=== PATIENT | female | born 1945 | race Caucasian/White ===

== ENCOUNTER → 2022-05-31 11:25 | Outpatient (CLI) | payer MEDICARE, SELFPAY ==
[2022-05-31 12:02] LABS: Add Manual Diff / Slide Review NO; Basophils Absolute Auto 100 /uL (0-100); Eosinophils Absolute Auto 100 /uL (0-450); Eosinophils Percent Auto 0.8 % (2-4); Hematocrit 34.8 % (36-46); Hemoglobin 11.3 g/dL (12.0-16.0); Lymphocytes Absolute Auto 1300 /uL (1100-4500); Lymphocytes Percent Auto 19.3 % (25-40); Mean Corpuscular HGB Conc 32.5 % (30-36); Mean Corpuscular Hemoglobin 30.2 PG (26-34); Mean Corpuscular Volume 92.8 fL (80-100); Monocytes Absolute Auto 900 /uL (0-900); Monocytes Percent Auto 13.2 % (3-14); Neutrophils Absolute Auto 4600 /uL (1500-7000); Neutrophils Percent Auto 65.7 % (50-75); Platelet Count 346 X10^3/uL (150-400); Red Blood Cell Count 3.75 X10^6/uL (4.0-5.2); Red Cell Distribution Width 14.1 % (11.6-14.8)
[2022-05-31 12:45] LABS: BUN Creatinine Ratio 23.2 (6-22); Blood Urea Nitrogen 13 mg/dL (7-17); Calcium 8.6 mg/dL (8.4-10.2); Carbon Dioxide 26 mmol/L (22-32); Chloride 100 mmol/L (98-107); Estimated Glomerular Filt Rate > 60 mL/min (>60); Glucose 97 mg/dL (80-110); HEMOLYSIS < 15 (0-50); Potassium 3.8 mmol/L (3.4-5.1); Sodium 137 mmol/L (137-145)
[2022-05-31 12:51] LABS: Bilirubin Urine UA NEGATIVE (NEGATIVE); Color Urine UA YELLOW; Glucose Urine UA NEGATIVE (Negative); Ketones Urine UA NEGATIVE (NEGATIVE); Leukocyte Esterase Urine UA 1+ (NEGATIVE); Nitrite Urine UA NEGATIVE (Negative); Occult Blood Urine UA NEGATIVE (Negative); Protein Urine UA NEGATIVE (Negative); Specific Gravity Urine UA <=1.005 (1.000-1.035); Urobilinogen Urine UA 0.2 E.U./dL (0.2)
[2022-05-31 13:00] LABS: Appearance Urine UA Slightly Cloudy
[2022-05-31 13:05] LABS: Amorphous Sediment Urine 1+; Bacteria Urine Occasional (0-1); Culture Indicated Urine Specimen Cultured; RBC Urine None Seen (0-5/HPF); Renal Epithelial Cells Urine 0-1/HPF (0-1/HPF); Squamous Epithelial Cell Urine 1-5 /HPF (0-5/HPF); WBC Urine 5-10/HPF (0-5/HPF)
== END ==
PROVIDERS: Referring Provider Orthopaedic Surgery; Visit Provider Orthopaedic Surgery
DX: Z01.818 Encounter for other preprocedural examination (principal); N39.0 Urinary tract infection, site not specified; Z01.812 Encounter for preprocedural laboratory examination
CPT/HCPCS: 36415; 80048; 81001; 85025; 87086; 93005; 93010

== ENCOUNTER → 2022-06-13 11:20 | Outpatient (CLI) | payer MEDICARE, SELFPAY ==
--- NOTE | 2022-06-13 | DI.CT.S_ITS ---
PROCEDURE: CT UE RT WO CON INDICATIONS: Primary osteoarthritis, right shoulder TECHNIQUE: Noncontrast 1-1.5 mm thick sections acquired from the acromioclavicular joint to the inferior scapula, with coronal and sagittal reformatting. COMPARISON: [facility] Outside Film, CT, CT UPPER EXTREMITY RIGHT WITHOUT CONTRAST, 05/09/2022, 14:39. FINDINGS: Image quality: Excellent. Bones: Moderate acromioclavicular joint osteoarthritic changes are seen with joint space narrowing, subchondral sclerosis and marginal osteophyte formation. Subacute appearing comminuted and impacted fracture involving proximal humeral shaft/surgical neck is seen with superior and anterior medial migration of proximal humeral shaft in relation to humeral head. There is up to 2.5 cm overlapping at fracture site. Fracture lines are seen extending to both greater and lesser tuberosities with medial and laterally displaced fractured fragments. No other fracture or dislocation is seen. No suspicious bony lesions. Visualized right upper to mid ribs are intact. Soft tissues: There is moderate joint effusion, no calcified intra-articular loose bodies. No gross full-thickness rotator cuff tendon rupture is noted. Sagittal images shows mild supraspinatus muscle atrophy. No abnormal soft tissue calcifications. IMPRESSION: 1. Subacute appearing comminuted and displaced proximal humeral fracture as described above consistent with a 3-4 part proximal humeral fracture. No other fracture or dislocation. No suspicious bony lesions. 2. Moderate acromioclavicular joint and glenohumeral joint osteoarthritis. No dislocation. 3. Moderate joint effusion, no gross loose bodies. No full-thickness rotator cuff tendon rupture. No abnormal soft tissue calcifications. Mild supraspinatus muscle atrophy. Dictated by: Rick Nascimento M.D. on 06/13/2022 at 16:38 Approved by: Rick Nascimento M.D. on 06/13/2022 at 16:42
== END ==
PROVIDERS: Referring Provider Orthopaedic Surgery; Visit Provider Orthopaedic Surgery
DX: M19.011 Primary osteoarthritis, right shoulder (principal); S42.201A Unspecified fracture of upper end of right humerus, initial encounter for closed fracture; M25.411 Effusion, right shoulder; M62.511 Muscle wasting and atrophy, not elsewhere classified, right shoulder
CPT/HCPCS: 73200

== ENCOUNTER 2022-06-20 11:11 | Inpatient (IN) | payer MEDICARE, SELFPAY ==
[2022-06-13 08:46] VITALS: BMI 23.1
[2022-06-20] VITALS (14 sets, daily range): BP systolic 126–179; BP diastolic 54–84; PULSE 93–133; RESP 12–22; TEMP 36.4–36.9; O2SAT 95–100; BMI 22.2
--- NOTE | 2022-06-20 | DI.RAD.S_ITS ---
PROCEDURE: XR SHOULDER RT 1V INDICATIONS: INTRA -OP RIGHT SHOULDER TECHNIQUE: 1 views of the shoulder were acquired. COMPARISON: [facility], , XR SHOULDER RT 1V, 06/20/2022, 18:49. Findings and impression: Intraoperative images were obtained for right shoulder arthroplasty, appearing in appropriate position. Please see operative note for full details. Dictated by: Catracho Del Toro M.D. on 06/20/2022 at 19:40 Approved by: Catracho Del Toro M.D. on 06/20/2022 at 19:41
--- NOTE | 2022-06-20 06:00 | DI.RAD.S_ITS ---
PROCEDURE: XR SHOULDER RT 1V INDICATIONS: prosthesis placement TECHNIQUE: 1 views of the shoulder were acquired. COMPARISON: [facility] [place], CR, XR SHOULDER 2+ VIEWS RIGHT, 06/07/2022, 10:32. FINDINGS: Bones: Right shoulder arthroplasty and fracture fixation. Soft tissues: No suspicious calcifications. Postsurgical changes. IMPRESSION: Postsurgical changes following right shoulder arthroplasty and fracture fixation. Dictated by: Catracho Del Toro M.D. on 06/20/2022 at 19:07 Approved by: Catracho Del Toro M.D. on 06/20/2022 at 19:08
[2022-06-20 11:56] LABS: COVID19 -Nasal RAPID Negative (Negative)
[2022-06-20] MEDS: ACETAMINOPHEN 325 MG TABLET 975 MG PO (11:57)
[2022-06-20] MEDS: PREGABALIN 75 MG CAPSULE PO (11:58)
[2022-06-20] MEDS: LACTATED RINGERS 1,000 ML 42 ML IV ×3 (11:58→19:08)
[2022-06-20] MEDS: CELECOXIB 200 MG CAPSULE PO (11:58)
--- NOTE | 2022-06-20 13:10 | SUR.PREOP ---
Block start time [1255] . Monitoring initiated and maintained throughout procedure. Oxygen and medications given per anesthesiologist instructions. Patient remained stable throughout procedure, no adverse reactions noted. Block end time [0105].
--- NOTE | 2022-06-20 13:21 | PM.PREOP ---
Pre-operative Note Interval Note History & Physical reviewed/Exam performed by Physician: Yes Changes to H&P: No
[2022-06-20] MEDS: CEFAZOLIN 2 GM/100 ML PREMIX 100 ML IV ×3 (14:00→21:03)
[2022-06-20] MEDS: TRANEXAMIC ACID 1,000 MG VIAL 1000 MG INJ (14:05)
--- NOTE | 2022-06-20 14:46 | SUR.OPER ---
Beach chair with Schlein shoulder positioner. Lower body on padded OR bed. Gel pad under buttock. Head in foam padded head cradle, secured with straps. Non-operative arm secured <90 degrees abduction, secured across torso with Schlein straps. Right arm in control of surgeon. Two Pillows under knees. Gel pad under bilateral heels. Safety belt at thigh. Cloth tape over blanket over lower legs.
[2022-06-20] MEDS: BUPIVACAINE 0.25% (PF) 60 ML, EPINEPHrine 0.3 MG INJ (16:58)
--- NOTE | 2022-06-20 18:39 | PM.OP.1 ---
Operative Date/Time/Diagnoses Date of procedure: 06/20/22 Time of procedure: 18:39 Pre-op diagnosis: Right proximal humerus fracture, 4 parts with spiral fracture component Post-op diagnosis: same Procedure & Clinicians Procedure: Right shoulder hemiarthroplasty Same procedure as scheduled: Yes Indications: Indications: This is a 77 year old female who has a 4 part proximal humerus fracture. This occurred now over 6 weeks ago. I saw her with her son in clinic. After extensive discussion in clinic, they wished to go forward with surgery. Risks and benefits were described including the risk of infection, bleeding, damage to internal structures including nerves. We also discussed the risk of failure of surgery and the need for revision surgery as well as the risk of anesthesia. The patient expressed understanding with these risks and wished to go forward with surgery. Surgeon: Juan Pinto Mill Washer: Lea Acosta Anesthesia Type: General Operative Notes Findings: Findings: Osteoarthritis of the glenoid and humeral head [as well as a defient rotator cuff] as noted on preoperative imaging and under direct visualization Prosthetic devices, grafts, tissues, transplants, or devices: Tornier implants Stem: Flex size 2 Humeral head: 50 x 16, high offset Estimated Blood Loss (mL): 100 Procedure in detail: Patient was seen in the preoperative holding unit. The correct right shoulder was identified and marked with my initials. Again we discussed the risks and benefits of surgery and they wished to go forward with surgery. The patient was brought back to the operating room and placed supine on the operating table. Smooth endotracheal intubation was performed by anesthesia. All prominences were padded and they were placed into the beach chair position. Intravenous antibiotics were given. The right shoulder was then prepped with the standard sterile preparation and draping. A time-out was then performed in my initials were again identified on the correct shoulder. 1 g of IV tranexamic acid was given. A standard deltopectoral incision was made. Skin flaps were made. The cephalic vein was identified and retracted laterally. Sharp dissection was made along the deltoid, subacromial and subcoracoid space to release adhesions. The conjoined tendon was identified and the axillary nerve was palpated and continuous using the tug test. It was protected throughout the remainder of the case. A brown retractor was placed underneath the deltoid muscle and a darach retractor underneath the conjoint tendon. The biceps tendon was identified in the bicipital groove. This was released from its sheath, and taken from its origin on the glenoid and tied into the pectoralis tendon for a solid tenodesis. I then performed a lesser tuberosity osteotomy. The subscapularis was tagged with an Ethibond suture. A 360 degree circumferential release of the subscapularis was performed with protection of the axillary nerve. The greater tuberosity was then found and tagged. The remainder of the humeral head was then removed. Attention was then turned to the glenoid. After retracting the humeral head posteriorly a circumferential release was performed of the capsule with protection of the axillary nerve. The labrum was then released starting at the biceps anchor and going around the rim a small amount of triceps was released from the inferior glenoid. A center guide pin was then placed using the guide, followed by Reamer. After adequate cartilage was removed the center drill hole was drilled and measured. The base plate was then implanted and screwed into place. The superior drill hole was drilled and filled in a nonlocking fashion, followed by the inferior. There was not enough room for anterior or posterior screws due to the size of the glenoid. As the glenosphere was then placed and screwed in clockwise into the base plate, the entire unit rotated clockwise breaking out of the anterior cortex resulting in only the posterior half of the glenoid being in continuity. The anterior half that was ruptured off was in small cancellous pieces and not salvageable. Turning back to the humerus there was notably a spiral component. Two separate cerclage wires were placed and tensioned. Drill holes were placed in the shaft for repairing the tuberosities, and Nice loops were passed A size 2 long flex stem was then placed and a size 50 high offset humeral head was placed. The shoulder was then reduced and the tuberosities were repaired using #5 Sutures and nice loupes. Note, the lesser tuberosity was fairly difficult to pull all the way over due to the subscapularis being retracted and scarred in from being 6 weeks out from the injury. The deltopectoral interval was then closed with Ethibond and the skin was closed with PDS and Monocryl. Assisting participation: This operation could not have been safely performed (without compromising the technical results or length of the procedure) without the assistance of a skilled surgical instrument technician. The surgical instrument technician was medically necessary for proper positioning, retraction and manipulation of instruments, proper exposure, graft prep, and manipulation of tissue. Complications: none Post-operative Condition: stable Disposition: PACU Plan for aftercare: Postoperative instructions: Sling to remain on for 6 weeks. Please work on elbow range of motion. No external rotation past neutral for 6 weeks. Okay for him to come off her shower. Okay to shower over the Aquacel dressing. If any water gets underneath the dressing, remove the dressing. First postoperative visit in 2 weeks.
--- NOTE | 2022-06-20 18:57 | SUR.PHASEI ---
Patient arrives to PACU with HR of 133 Sinus tachycardia; asymptomatic. Anesthesia aware and metoprolol IV administered. HR down to 106 after medication given.
[2022-06-20] MEDS: ONDANSETRON 4 MG/2 ML INJ IV (19:01)
[2022-06-20] MEDS: OXYCODONE IR 5 MG TABLET PO (19:01)
[2022-06-20 19:03] LABS: Hematocrit 28.6 % (36-46); Hemoglobin 9.4 g/dL (12.0-16.0)
--- NOTE | 2022-06-20 19:06 | SUR.PHASEI ---
Bladder scan 200 mls.
[2022-06-20] MEDS: DOCUSATE 100 MG CAPSULE PO (21:03)
[2022-06-20] MEDS: ASPIRIN EC 81 MG TABLET PO (21:03)
[2022-06-20 21:31] LABS: MRSA (Nasal) PCR Not Detected (Not Detect)
--- NOTE | 2022-06-20 23:28 | PC.NURSE ---
Patient arrived to unit post op from shoulder surgery at 1930. Patient alert and oriented, slightly tachycardic, HR 108. Patient was in no pain, slightly anxious regarding surgery, which has now subsided. Patient currently NSR and sleeping comfortably in bed.
[2022-06-21] VITALS: BP 129/67; PULSE 88; RESP 12; TEMP 36.4; O2SAT 96
[2022-06-21] MEDS: HYDROMORPHONE 1 MG INJ 0.5 MG IV (03:10)
[2022-06-21 04:00] VITALS: BP 109/62; PULSE 95; RESP 20; TEMP 36.4; O2SAT 96
[2022-06-21] MEDS: CEFAZOLIN 2 GM/100 ML PREMIX 100 ML IV (04:50)
[2022-06-21 04:59] LABS: Hematocrit 27.4 % (36-46); Hemoglobin 9.1 g/dL (12.0-16.0); Mean Corpuscular HGB Conc 33.1 % (30-36); Mean Corpuscular Hemoglobin 29.7 PG (26-34); Mean Corpuscular Volume 89.9 fL (80-100); Platelet Count 221 X10^3/uL (150-400); Red Blood Cell Count 3.05 X10^6/uL (4.0-5.2); Red Cell Distribution Width 14.4 % (11.6-14.8)
[2022-06-21] MEDS: PANTOPRAZOLE DR 20 MG TABLET PO (05:37)
--- NOTE | 2022-06-21 07:58 | PM.DS.1 ---
History of Present Illness History of Present Illness Date Patient Seen: 06/21/22 Time Patient Seen: 07:58 Chief complaint: Reverse TSA for fracture w/ biceos tenodesis Narrative: Patient is complaining of moderate right shoulder pain this morning. She notes her right upper extremity numbness and tingling have resolved. She is feeling somewhat weak this morning. Discharge Providers Provider Date of admission: 06/20/22 11:11 Discharge Date: 06/21/22 Primary care physician: Doctor Krystina MD Consults: 06/20/22 06:00 Consult to Anesthesiology Routine Comment: Consulting Provider: Anesthesiologist Reason for consultation: Regional block for post operative pain control 06/20/22 19:21 Consult to Discharge Planning Routine Comment: Consult to Physical Therapy Evaluate & Treat Comment: Physician Instructions: Evaluate and Treat Discharge provider: Lea Acosta PA-C Summary Hospital Course Discharge Diagnosis: Right proximal humerus fracture, 4 parts with spiral fracture component Hospital Course: Operative Date/Time/Diagnoses Date of procedure: 06/20/22 Time of procedure: 18:39 Procedure & Clinicians Procedure: Right shoulder hemiarthroplasty Same procedure as scheduled: Yes Indications: Indications:? This is a 77 year old female who has a 4 part proximal humerus fracture.? This occurred now over 6 weeks ago.? I saw her with her son in clinic.? After extensive discussion in clinic, they wished to go forward with surgery.? Risks and benefits were described including the risk of infection, bleeding, damage to internal structures including nerves.? We also discussed the risk of failure of surgery and the need for revision surgery as well as the risk of anesthesia.? The patient expressed understanding with these risks and wished to go forward with surgery. Surgeon: Juan Pinto Core Sucker: Lea Acosta Anesthesia Type: General Operative Notes Findings: Findings:? Osteoarthritis of the glenoid and humeral head [as well as a defient rotator cuff] as noted on preoperative imaging and under direct visualization Prosthetic devices, grafts, tissues, transplants, or devices: Tornier implants Stem:? Flex size 2 Humeral head:? 50 x 16, high offset Estimated Blood Loss (mL): 100 Status at Discharge Cognitive/behavioral status at discharge: at baseline, oriented Overall status at discharge: patient is progressing back to baseline Exam Vital Signs (past 8 hours): - 06/21/22 00:00 06/21/22 04:00 Temperature 97.6 F 97.5 F L Pulse Rate 88 95 H Respiratory Rate 12 20 Blood Pressure 129/67 109/62 Pulse Oximetry 96 96 Oxygen Delivery Method Room Air Oxygen Flow Rate 2 Narrative Exam Narrative: Pleasant 77-year-old female, resting comfortably in bed, no acute distress. Sling is in place. Right shoulder Aquacel dressing is clean, dry, intact. There is some surrounding ecchymosis but no induration or valentín pus. Bilateral upper extremity: Motor functions are grossly intact, sensation is grossly intact to light touch. Objective Labs 06/21/22 04:24 Labs: Laboratory Results - last 24 hr 06/20/22 06/20/22 06/20/22 11:30 18:45 19:58 WBC RBC Hgb 9.4 L Hct 28.6 L MCV MCH MCHC RDW Plt Count Nasal Screen MRSA (PCR) Not detected SARS-CoV-2 (PCR) Negative Blood Type Antibody Screen 06/20/22 06/21/22 21:50 04:24 WBC 9.0 RBC 3.05 L Hgb 9.1 L Hct 27.4 L MCV 89.9 MCH 29.7 MCHC 33.1 RDW 14.4 Plt Count 221 Nasal Screen MRSA (PCR) SARS-CoV-2 (PCR) Blood Type O Positive Antibody Screen Negative PFSH Medical History Arthritis Eczema GERD (gastroesophageal reflux disease) Humerus fracture (05/2022) Osteoporosis Surgical History Hx of arthroscopy of left knee Social History household members: children Smoking Status: Never smoker alcohol intake: current Discharge Assessment & Plan Assessment and Plan Assessment: -stable status post right shoulder hemiarthroplasty -mild postoperative hemorrhagic anemia, mildly symptomatic Plan of Treatment: -mobilize with PT. Encouraged elbow range of motion. Sling x6 weeks. No external rotation past neutral x6 weeks -continue with multimodal pain management -aspirin 81 mg b.i.d. x4 weeks for DVT prophylaxis -disposition: Home today or tomorrow depending on how she does with physical therapy Discharge Plan Discharge Plan Patient Disposition: Home Discharge orders & Medications Prescriptions: New aspirin 81 mg Tablet,Delayed Release (Dr/Ec) 81 mg PO BID 28 Days Qty: 56 0RF Rx Instructions: Prevent blood clots docusate sodium 100 mg Capsule 100 mg PO BID PRN (Reason: Constipation from narcotic pain meds) Qty: 20 0RF oxycodone 5 mg Tablet 5 mg PO Q3HR PRN (Reason: Pain, Mild (1-3)) Qty: 42 0RF acetaminophen [Tylenol Extra Strength] 500 mg tablet 500 mg PO Q4-6H MDD 3000mg per day PRN (Reason: pain) Qty: 90 0RF Rx Instructions: ok for OTC Continued ibuprofen [Advil] 200 mg Tablet 400 mg PO DAILY PRN (Reason: Pain) omeprazole 20 mg Capsule,Delayed Release(Dr/Ec) 20 mg PO DAILY Follow up/Referrals: Juan Pinto MD [Physician] - As previously scheduled (Follow up w/ Vera Presley PA-C, on 07/05/2022 @ 4:00 pm at [facility] Doctor Flaherty MD [Primary Care Provider] - Diet/Activity/Treatments Diet: Diet as Tolerated Cold/Heat Therapy: Ice to shoulder as needed for pain. Other treatments: Sling to remain on for 6 weeks. Please work on elbow range of motion. No external rotation past neutral for 6 weeks. Okay for sling to come off for a shower. Skin/Wound/Dressing Care Report to your healthcare provider any signs of infection, such as:: chills, fever, night sweats, unusual drainage and unusual redness Dressing: May shower. Leave Aquacel dressing in place until follow up in office. No bathing or otherwise soaking incision. Call the office if the dressing becomes saturated inside. Visit Report/Discharge Packet Instructions: DI for Shoulder Replacement Stand Alone Forms: Patient Portal/API, Stroke Signs & Symptoms, Surgery Discharge Discharge Data Primary Care Provider: Doctor Krystina
[2022-06-21] MEDS: ASPIRIN EC 81 MG TABLET PO ×2 (08:04→20:27)
[2022-06-21] MEDS: DOCUSATE 100 MG CAPSULE PO ×2 (08:04→20:27)
--- NOTE | 2022-06-21 09:39 | PT.IIE ---
Current Diagnoses Other displaced fracture of upper end of right humerus, initial encounter for closed fracture (06/20/22) Surgery Performed Operation Date: 06/20/22 13:45 Actual Procedures p Reverse Total Shoulder Arthroplasty for fracture with biceps tenodesis(Right) - Juan Pinto MD Surgical History (Last Reviewed 06/21/22 @ 08:00 by Lea Acosta PA-C) Hx of arthroscopy of left knee Medical History (Last Reviewed 06/21/22 @ 08:00 by Lea Acosta PA-C) Arthritis Eczema GERD (gastroesophageal reflux disease) Humerus fracture (05/2022) Osteoporosis Physical Therapy Inpatient Evaluation/Re-Eval M1 PT/OT-IP Prior Functional Status Start: 06/21/22 08:15 Freq: NEEDED Status: Active Protocol: Document 06/21/22 08:16 TH (Rec: 06/21/22 09:39 TH [id number]) Medical Review Prior Functional Status Medical History Reviewed Yes Communication Pt states that she has a hx of unsteady gait as well as bilat knee pain that has led to a sedentary lifestyle. Mobility and Gait IND without AD Activities of Daily Living and IADL's IND Prior Functional Level (Other details) Pt's son lives with her though she was unsure if he wouldbe able to assist that much. Social History Household Members children Number of Floors (Floors) One Floor Number of Stairs To Enter/Railing? 3 steps to entrance one rail Additional Social History Comment Per pt she does not have any DME at home. M2 PT-IP Current Condition Start: 06/21/22 08:15 Freq: NEEDED Status: Active Protocol: Document 06/21/22 08:16 TH (Rec: 06/21/22 09:39 TH [id number]) Physical Therapy Current Condition Current Condition Evaluation Date 06/21/22 Treatment Diagnosis ws/p total reverse shoulder right M3 PT-IP Subjective Start: 06/21/22 08:15 Freq: NEEDED Status: Active Protocol: Document 06/21/22 08:16 TH (Rec: 06/21/22 09:39 TH [id number]) Subjective Physical Therapy Visit Type Type Initial Evaluation Visit Start Time 08:30 Visit Stop Time 09:15 Total Visit Minutes [address] INSTRUCTOR Visits 0 Physical Therapy Visit Comments Patient Comments Pt reported she still feels groggy. Patient Goals To be able to go home Therapy Pain Assessment Location r UE Intensity 0 M4 PT-IP Mobility and Gait Start: 06/21/22 08:15 Freq: NEEDED Status: Active Protocol: Document 06/21/22 08:16 TH (Rec: 06/21/22 09:39 TH [id number]) PT-Transfer Assessment Comments Mobility Comments No pain reported at the time of evaluation Gait Assessment Gait Gait Assistance Required: Minimum Assistance Distance (Feet) 6 Able to Maintain Weight Bearing Status Yes During Gait Assistive Devices Assistive Device Garry Walker Orthotic/Prosthetic Devices or Brace: Yes Comments Gait Comments Gait unsteady. Pt required cues for sequencing steps. Likley due to medications. Stair Climbing Assessment Comments Stair Climbing Comments unable to test PT-Balance Assessment Sitting Balance and Reactions Static Sitting Balance Ability Normal Dynamic Sitting Balance Ability Normal Standing Balance and Reactions Static Standing Balance Ability Good Dynamic Standing Balance Ability Fair M5 PT-IP Objective Assessments Start: 06/21/22 08:15 Freq: NEEDED Status: Active Protocol: Document 06/21/22 08:16 TH (Rec: 06/21/22 09:39 TH [id number]) Orientation Orientation/Cognition Level of Alertness Alert Orientation Name,Place,Situation Language Function Ability No Deficits Noted Safety Awareness Understands Safety Issues Gross Range of Motion Upper Extremity ROM Assessment Right Impaired Impairments At shld due to surgery and reverse total shoulder precautions Lower Extremity ROM Assessment Within Functional Limits Strength Upper Extremity Strength Assessment Within Functional Limits Lower Extremity Strength Assessment Within Functional Limits Comments Strength Comments Pt stated she felt LEs felt a little weak M6 PT-IP Treatment Start: 06/21/22 08:15 Freq: NEEDED Status: Active Protocol: Document 06/21/22 08:16 TH (Rec: 06/21/22 09:39 TH [id number]) Physical Therapy Treatment Exercises Exercises Ankle Pumps Education Education Provided Precautions Equipment Issued Equipment Type and Company Recommend garry walker , raised toilet seat shower chair with back M7 PT-IP Assessment and Plan Start: 06/21/22 08:15 Freq: NEEDED Status: Active Protocol: Document 06/21/22 08:16 TH (Rec: 06/21/22 09:39 TH [id number]) PT Summary Assessment and Plan Potential Rehabilitation Potential Good Status of Condition at Evaluation Evolving Summary Impairments ROM,Strength,Activity Tolerance Goals Bed Mobility Goal Independent Transfer Goal Independent Gait Goal Independent,Garry Walker Gait Distance 50 feet Other Goals up/down 3 steps with rail IND IND with precautions Frequency of Treatment Frequency Of Treatment Twice a Day Treatment Plan Physical Therapy Treatment Plan Bed Mobility Training,Transfer Training,Gait Training, Therapeutic Exercise,Balance Retraining Precautions Shoulder Precautions Sling,PROM Other Precautions NO AROM/PROM into IR, NO reaching back, No lifting of objects, pillow behind shoulder when lying back to avoid shld hyperextension Weight Bearing Status Weight Bearing Status Non-Weight Bearing Allowed Weight Bearing Amount (enter % through RUE or #) (%) Recommendations To Nursing Amount of Assist Needed 1 Person Assist Discharge Recommendations PT Discharge Recommendations SNF Rehab Other Discharge Recommendations SNF for now unless pt is able to demonstrate IND with functional mobility before dc from hospital. Equipment Needed for Home Before Recommend garry walker , raised Discharge toilet seat shower chair with back Transportation Needs at Discharge Private Vehicle
--- NOTE | 2022-06-21 11:30 | CM.DANOTE ---
Addendum entered by PAPITO Waggoner 06/21/22 13:37: Add: Per OT/PETROLOGY TEACHER, pt has very tight calves and therefore impacts her stability and mobility and then pt having bp issues and not able to assess much this afternoon and potential need for SNF. Per UR RN, still unclear if pt will meet criteria for Inpt Status yet but will continue to review. BF Original Note: Patient is a 77 yo female who was admitted on 06/20/22 for Reverse TSA with fx from recent GLF. Pt has MCR and AARP for insurance and she does not have PCP. EMR was reviewed. Per Ortho, pt had complex surgery and had further fx during surgical intervention and not yet stable for d/c but maybe in 1-2 days pending progress. Per PT, pt was unsteady and not yet safe for return home and possible need of SNF. Per RN, pt able to use commode and was SBA so pt likely may improve with progress. OT ordered and pending. SW met bedside with pt and explained role and pt confirms she lives in [place] with her adult son/MEENAKSHI Paige and pt is typically independent at baseline and does not use DME but states she has been getting more unsteady with balance issues and states she does not have good posture. Pt states they moved to [place] a year ago and son works away from home mostly time study engineer but has some flexibility and may be able to take a little time off work to assist. Pt denies any hx of HH or SNF but states before her mother she had been in SNF. SW discussed waiting to confirm she is Inpt Status in case SNF needed and discussed difference between HH and SNF. Pt already has outpt PT set up for next week but has some worries about going home but also would like to try to avoid SNF. ASHOK provided the SNF/HH Choice list and pt reviewing the star ratings and is hopeful for home with HH but confirms she does not have an established PCP as she is typically healthy and hasn't needed a doctor but open to establishing with one and aware this could be a barrier to HH. ANTONIO Rinaldi called [facility] to inquire about their Tele-health HH without PCP and they could follow pt until July while pt is getting establish care appointment but cannot alter any meds but Ortho team likely could. ANTONIO Rinaldi called [facility] to inquire about [facility] without PCP and they do not anticipate any issues with being able to accept but want to review with their team and ANTONIO Nimco kindly faxed referral to [facility] to review. F2F completed in anticipation of possible HH but Ortho MD will need to sign. Plan: SW to follow closely for further PT/OT towards determining SNF vs HH vs outpt PT as pt's lack of PCP is a barrier and waiting to confirm pt Inpt Status in case SNF needed. PAPITO Waggoner Discharge Planning/Care Management CM Discharge Assessment Start: 06/21/22 11:16 Freq: Status: Active Protocol: Document 06/21/22 11:16 BF (Rec: 06/21/22 11:19 BF [id number]) Discharge Planning Assessment Assigned Log Inspector PAPITO Ryan DPOA/Assigned Designee Name toan Paige Contact Information [phone] Advance Directives? No Advance Directives on File No History Provided By Patient,Medical Record Has Patient been admitted in last 30 No days? Prior Living Arrangements House Household Members children Comment Lives with adult toan Paige Type of transporation used prior to Drives own vehicle admit Independent with ADL's Yes Is patient alert and oriented? Yes Needs Assistance With Home Chores / Shopping Caregiver for Another No Community Services used prior to Physical Therapy admission: Comment has outpt PT scheduled starting next week, but may need HH vs SNF at d/c pending progress DME Already Rented / Owned FWW / Walker Patient/Family Preference [facility] Facility,Home with Home Health Comment has outpt PT scheduled starting next week, but may need HH vs SNF at d/c pending progress Barriers to Discharge No Discharge Plan Home with Home Health Community Services Physical Therapy,Occupational Therapy,Home Health Aid Transportation Arrangement Toan Paige plans to provide transport at d/c Additional Comment has outpt PT scheduled starting next week, but may need HH vs SNF at d/c pending progress If patient plan is home with home health Yes : Has signed face to face form been completed? Medicare Choice List Provided Yes Medicare choice list reviewed on patient electronic tablet with SNF/HH Preference Currently no preferences, reviewing Choice list and awaiting further PT/OT Whiteboard Updated in Patient Room with Yes name and ext. # of Log Inspector Review Status In Process Please Provide Date Initial DC 06/21/22 Assessment Was Performed Next Review Type Continued Stay Review Pre-Anesthesia Assessment Start: 06/13/22 08:46 Freq: Status: Active Protocol: Document 06/13/22 08:46 [facility] (Rec: 06/13/22 09:22 [facility] [id number]) Pre-Anesthesia Assessment Patient Information Reviewed Via Phone Assessment Assessment Completed With Patient Diagnostic Results BMP/CMP,CBC,EKG,Urinalysis Comment Labs/EKG @ [facility] 05/31/22 Primary Care Provider None Seen Specialist in Last 12 Months Yes Specialist Seen Emergency,Orthopedist Primary Language Romanian Servicing Rep Required No Height 166.37 cm Weight 63.957 kg Body Mass Index (BMI) 23.1 Hearing Ability Normal Visual Assist Glasses Dentition Type Teeth, Natural Present Barriers to Learning None Hx Anesthesia Reactions No Hx Family Anesthesia Reaction No Hx Malignant Hyperthermia No Hx Blood Transfusions No Anesthesia Review Requested No Denitrator No alcohol intake current alcohol intake frequency 0-2 drinks per day Smoking Status Never smoker Substance Use Type does not use Pain Present Pain Reported Musculoskeletal Symptoms Joint Pain,Limited Range of Motion History of Falling (Recent or History of Yes ) Patient is completely paralyzed or No completely immobile Comment Balance issue Is patient on oxygen? No Does patient have LOGAN/SOB No Hx Sleep Apnea No Currently Taking a Beta Diane No Hx Chest Pain No Hx SOB No Hx Syncope or Dizziness No Anti-Coagulant Therapy No Has a Regional Sales Coordinator No Cardiac Testing No Hx Pacemaker/ICD No Pacemaker Rep Required? No Cardiac Clearance Received Not Applicable Diet Type At Home Regular Dysphagia No Gastrointestinal Symptoms Constipation,Reflux Chronic UTI No Urinary Catheter Present No Hx Urinary Self Catheterization No Diabetes No Patient No Lactating No Hx Drug Resistant Organism No Presence of External or Internal Medical No Devices Have you had any close contact with No someone diagnosed with COVID-19? Received a COVID vaccine? No Marital Status Single Lives With children Comment Lives with son Royal Number of Floors (Floors) One Floor Support System Child/Children Does the Patient Have Assistance After Yes Surgery Patient Discharge Plan Description Return Home Comment Pt advised possible same day surery per surgeon Feels Safe in Current Environment Yes Been Physically Hurt or Threatened By a No Person in Current Environment Do you have thoughts of harming yourself None or others? Are you currently considering suicide? No Do you have a plan to hurt yourself or No Plan others? Do You Have Any Spiritual Beliefs That No May Affect Your HC Choices? Do You Have Any Cultural Practices That No May Affect Your HC Choices? Comment Latter Day Who Can We Speak to About Patient's Care Family, friends Identifying Code for Release of Patient Declines to issue Information Health Care Proxy/Next of Kin Royal (son) Health Care Proxy Emergency Contact Name Royal (son) Emergency Contact Advance Directives? No Power of City Detective No PAC Instructions Do not shave/clip surgical site,Durable medical equipment ,Medications to take/avoid, Nasal antibiotic,No ETOH/ petroleum product on skin DOS, NPO,Post-op transportation, Sturdy shoes/comfortable clothes,Do not bring valuables and remove jewelry
--- NOTE | 2022-06-21 11:57 | CM.DPNOTE ---
Called [facility] and spoke with Beka re: [facility] program for this patient, per Shelby. Pt. does not have PCP. Beka and his team will review clinicals that I have sent to accept the patient. Cristal antione Villeda said in order for pt. to have tele services, they would need a good network service at her home and to have scheduled a PCP appointment. She said they could not alter any medications without a PCP if that was necessary. I will update this note if [facility] accepts this patient. Nimco Wall CM Assist.
[2022-06-21 13:00] VITALS: BP 109/59; PULSE 80; RESP 16; TEMP 36.6; O2SAT 98
--- NOTE | 2022-06-21 13:09 | PT.IPTN ---
Current Diagnoses Other displaced fracture of upper end of right humerus, initial encounter for closed fracture (06/20/22) Surgery Performed Operation Date: 06/20/22 13:45 Actual Procedures p Reverse Total Shoulder Arthroplasty for fracture with biceps tenodesis(Right) - Juan Pinto MD Physical Therapy Treatment Note M2 PT-IP Current Condition Start: 06/21/22 08:15 Freq: NEEDED Status: Active Protocol: Document 06/21/22 08:16 TH (Rec: 06/21/22 09:39 TH [id number]) Physical Therapy Current Condition Current Condition Evaluation Date 06/21/22 Treatment Diagnosis ws/p total reverse shoulder right M3 PT-IP Subjective Start: 06/21/22 08:15 Freq: NEEDED Status: Active Protocol: Document 06/21/22 13:40 TS (Rec: 06/21/22 14:02 TS [id number]) Subjective Physical Therapy Visit Type Type Treatment Note Visit Start Time 13:09 Visit Stop Time 13:30 Total Visit Minutes 21 Notes Pt found ambulating with OT in room, OT reported pt is feeling dizzy/possbily orthostatic. Vitals: BP sittin/59, Standing 99/54, Supine 127/60 Number of MARINE FUEL DOCK ATTENDANT Visits 1 Physical Therapy Visit Comments Patient Comments Pt reports that she hasn't felt dizzy before and this is new. Patient Goals To be able to go home M4 PT-IP Mobility and Gait Start: 06/21/22 08:15 Freq: NEEDED Status: Active Protocol: Document 06/21/22 13:40 TS (Rec: 06/21/22 14:02 TS [id number]) PT-Bed Mobility Assessment Sit to Supine Sit to Supine Standby Assistance Scooting Scooting Up and Down in Bed Standby Assistance PT-Transfer Assessment Sit to and From Stand Sit to and from Stand Contact Guard Assistance Equipment Transfer Assistive Device Garry Walker Transfers Transfer Destination Bed Transfer Technique Stand Step Pivot Transfer Ability Level of Assist Standby Assistance Comments Mobility Comments Pt found in room with OT. OT reports pt is feeling dizzy and required to sit, BP 113/59 . Pt performed sit to stand CGA with hemiwalker, BP in standing 99/54, reported feeling dizzy, sat in chair. Pt peformed stand step pivot transfer back to bed CGA with cues for sidestepping to HOB. Sit to supine SBA with BUE support, BP in supine 127/60. Pt was left in bed with call light nearby, RN notified of orthstatic. Gait Assessment Gait Gait Assistance Required: Contact Guard Assist Distance (Feet) 5 Able to Maintain Weight Bearing Status Yes During Gait Assistive Devices Assistive Device Garry Walker Orthotic/Prosthetic Devices or Brace: Yes Comments Gait Comments Pt performed stand step pivot trasnfer to bed, step to gait with hemiwalker CGA due to feeling like Le's would buckle . Stair Climbing Assessment Comments Stair Climbing Comments unable to test PT-Balance Assessment Sitting Balance and Reactions Static Sitting Balance Ability Normal Dynamic Sitting Balance Ability Normal Standing Balance and Reactions Static Standing Balance Ability Good Dynamic Standing Balance Ability Fair M5 PT-IP Objective Assessments Start: 06/21/22 08:15 Freq: NEEDED Status: Active Protocol: Document 06/21/22 08:16 TH (Rec: 06/21/22 09:39 TH [id number]) Orientation Orientation/Cognition Level of Alertness Alert Orientation Name,Place,Situation Language Function Ability No Deficits Noted Safety Awareness Understands Safety Issues Gross Range of Motion Upper Extremity ROM Assessment Right Impaired Impairments At shld due to surgery and reverse total shoulder precautions Lower Extremity ROM Assessment Within Functional Limits Strength Upper Extremity Strength Assessment Within Functional Limits Lower Extremity Strength Assessment Within Functional Limits Comments Strength Comments Pt stated she felt LEs felt a little weak M6 PT-IP Treatment Start: 06/21/22 08:15 Freq: NEEDED Status: Active Protocol: Document 06/21/22 13:40 TS (Rec: 06/21/22 14:02 TS [id number]) Physical Therapy Treatment Exercises Exercises Ankle Pumps,Elbow Flexion/ Extension Equipment Issued Equipment Type and Company Recommend garry walker , raised toilet seat shower chair with back Other Treatments Other Treatment Performed Educated pt on ankle pumps in bed and UE post op exercises. M7 PT-IP Assessment and Plan Start: 06/21/22 08:15 Freq: NEEDED Status: Active Protocol: Document 06/21/22 13:40 TS (Rec: 06/21/22 14:02 TS [id number]) PT Summary Assessment and Plan Potential Rehabilitation Potential Good Status of Condition at Evaluation Evolving Summary Impairments ROM,Strength,Activity Tolerance Assessment Summary Pt was with OT in room upon arrival, OT reports pt is orthostatic and required transfer back to bed. She performed sit to stand x2 CGA with hemiwalker and stand step pivot transfer CGA. Pt unable to progress gait and stairs at this time due to being orthostatic. PT currently is recommending SNF at this time to progress activity tolerance , trasnfers and gait. Goals Bed Mobility Goal Independent Transfer Goal Independent Gait Goal Independent,Garry Walker Gait Distance 50 feet Other Goals up/down 3 steps with rail IND IND with precautions Frequency of Treatment Frequency Of Treatment Twice a Day Treatment Plan Physical Therapy Treatment Plan Bed Mobility Training,Transfer Training,Gait Training, Therapeutic Exercise,Balance Retraining Precautions Shoulder Precautions Sling,PROM Other Precautions NO AROM/PROM into IR, NO reaching back, No lifting of objects, pillow behind shoulder when lying back to avoid shld hyperextension Weight Bearing Status Weight Bearing Status Non-Weight Bearing Allowed Weight Bearing Amount (enter % through RUE or #) (%) Recommendations To Nursing Amount of Assist Needed 2 Person Assist Discharge Recommendations PT Discharge Recommendations SNF Rehab Other Discharge Recommendations SNF for now unless pt is able to demonstrate IND with functional mobility before dc from hospital. Equipment Needed for Home Before Recommend garry walker , raised Discharge toilet seat shower chair with back Transportation Needs at Discharge Private Vehicle
--- NOTE | 2022-06-21 13:30 | OT.IP.EVAL ---
Current Diagnoses Other displaced fracture of upper end of right humerus, initial encounter for closed fracture (06/20/22) Surgery Performed Operation Date: 06/20/22 13:45 Actual Procedures p Reverse Total Shoulder Arthroplasty for fracture with biceps tenodesis(Right) - Juan Pinto MD Past Medical History (Last Reviewed 06/21/22 @ 08:00 by Lea Acosta PA-C) Arthritis Eczema GERD (gastroesophageal reflux disease) Humerus fracture (05/2022) Osteoporosis Surgical History (Last Reviewed 06/21/22 @ 08:00 by Lea Acosta PA-C) Hx of arthroscopy of left knee Occupational Therapy Inpatient Evaluation/Re-Eval M1 PT/OT-IP Prior Functional Status Start: 06/21/22 08:15 Freq: NEEDED Status: Active Protocol: Document 06/21/22 13:56 [facility] (Rec: 06/21/22 14:33 [facility] [id number]) Medical Review Prior Functional Status Medical History Reviewed Yes Communication Pt states that she has a hx of unsteady gait as well as bilat knee pain that has led to a sedentary lifestyle. Mobility and Gait IND without AD Activities of Daily Living and IADL's IND Prior Functional Level (Other details) Pt's son lives with her though she was unsure if he wouldbe able to assist that much. Pt's son works during the day. Social History Household Members children Living Arrangements House Number of Floors (Floors) One Floor Number of Stairs To Enter/Railing? 3 steps to entrance one rail Additional Social History Comment Pt states she has a cane, fww, 4ww, bsc, and lift chair. M2 OT-IP Current Condition Start: 06/21/22 13:55 Freq: Status: Active Protocol: Document 06/21/22 13:56 [facility] (Rec: 06/21/22 14:33 [facility] [id number]) Occupational Therapy Current Condition Current Condition Evaluation Date 06/21/22 Treatment Diagnosis Reverse TSA for fracture with biceps tenodesis Diagnosis Onset Date 06/20/22 Post Operative Precautions Shoulder Precautions Sling Other Precautions Elbow ROM, no ER past neutral for 6 weeks, okay to come off for shower Weight Bearing Status Weight Bearing Status Non-Weight Bearing Allowed Weight Bearing Amount (enter % NWB RUE or #) (%) M3 OT- IP Subjective and Pain Start: 06/21/22 13:55 Freq: Status: Active Protocol: Document 06/21/22 13:56 [facility] (Rec: 06/21/22 14:33 [facility] [id number]) OT- Subjective Occupational Therapy Visit Type Type Initial Evaluation Visit Start Time 12:33 Visit Stop Time 13:30 Total Visit Minutes 57 Occupational Therapy Visit Comments Patient Comments Pt agreed to get up as pt was sitting in the recliner. Patient/Caregiver Goals To go home. OT Pain Assessment Pain When Pain Assessed During Mobility Pain Present Pain Present Pain Reported Location r UE Intensity 7 Scale Used Numeric (0 - 10) M4 OT- IP ADL's Start: 06/21/22 13:55 Freq: Status: Active Protocol: Document 06/21/22 13:56 [facility] (Rec: 06/21/22 14:33 [facility] [id number]) OT [id number] Comments OT Self-Feeding Comments Pt will need assist with set- up OT ADL-Grooming Comments OT Grooming Comments Pt will need assist with set- up, unable to try due to low BP. OT ADL-Dressing General Eval Upper Body Dressing Ability Total Assistance Lower Body Dressing Ability Moderate Assistance Areas Needing Assistance Socks Comments OT Dressing Comments Total assist for sling management needs. Attempted to put abduction pillow for sling for pt , but pt states too painful and then just readjusted the sling strapping shorter. Pt able to doff her socks and needing assist to help get them over her feet . OT ADL-Toileting Comments OT Toileting Comments Suggested if pt goes home to wear briefs so not having to hurry to the bathrrom. OT ADL-Bathing Comments OT Bathing Comments Pt will greatly benefit from assist at home. M5 OT- IP IADL's Start: 06/21/22 13:55 Freq: Status: Active Protocol: Document 06/21/22 13:56 [facility] (Rec: 06/21/22 14:33 [facility] [id number]) OT-Instrumental Activities of Daily Living Deficits IADL Deficits Identified Deficits Home Safety Awareness Awareness of Need for Assistance at Home Good Awareness Ability to Problem Solve Emergency Able to Problem Solve Situations Home Safety Comments Pt's son works and will need to have assist with ADL, IADL, and mobility. M6 OT- IP Functional Cognition Start: 06/21/22 13:55 Freq: Status: Active Protocol: Document 06/21/22 13:56 [facility] (Rec: 06/21/22 14:33 [facility] [id number]) Cognitive Factors Limiting Selfcare Function Cognitive Ability Level of Alertness Alert Patient Orientation Name,Place,Situation Attention Span Ability Capable of Focused Attention, Capable of Sustained Attention Ability to Follow Commands Able to Follow One Step Commands Cognitive Comments Cognitive Assessment Comments Pt able to follow commands for ADL and mobility needs. OT- Vision and Hearing OT- Hearing Assessment OT- Hearing Assessment WFL OT- Vision Assessment Visual Acuity Glasses For Reading M7 OT- IP Mobility and Balance Start: 06/21/22 13:55 Freq: Status: Active Protocol: Document 06/21/22 13:56 [facility] (Rec: 06/21/22 14:33 [facility] [id number]) OT- Bed Mobility Assessment Sit to Supine Sit to Supine Assist Standby Assistance OT-Transfer Assessment Sit to and From Stand Sit to and from Stand Minimal Assistance Transfers Transfer Ability Minimal Assistance Technique Transfer Destination Bed,Chair Transfer Technique Stand Step Pivot Devices Transfer Assistive Devices Gait Belt,Small Based Quad Cane,Garry Walker Comments Mobility Comments Pt sittin in the recliner 109/ 59 and after getting up to the sink and back with Quad cane and GILSON for balance as pt unsteady on her feet, BP dropped to 83/50 and having to recliner pt BP 118/57. Pt states feeling dizzy and whoozy. Pt feeling better and able to reattempt to stand with the hemiwalker. BP sitting 113/59, standing with the hemiwalker to 99/54 and pt feeling whoozy and dizzy. Able to sit pt back down and have her feet up BP 127/60. NUrsing notified on pt being hypotensive and symtomatic as well. OT- Balance Assessment Sitting Balance and Reactions Static Sitting Balance Ability Normal Dynamic Sitting Balance Ability Good Standing Balance and Reactions Static Standing Balance Ability Fair Dynamic Standing Balance Ability Poor Comments Other Balance Tests/Deviations/Treatment Pt having difficulty to have : her feet flat on the floor when trying to come to stand and tends to lift her heels up as pt does not appear to hav enough ROM in her ankle due to tightness in her calf or possibly weakness legs muscle for dorsiflexion. Pt is very unsteady on her feet and at times seem to hyperextend her rigth knee when trying to take steps. M8 OT- IP Objective Assessments Start: 06/21/22 13:55 Freq: Status: Active Protocol: Document 06/21/22 13:56 [facility] (Rec: 06/21/22 14:33 [facility] [id number]) OT Gross Range of Motion Upper Extremity Range of Motion Assessment Right Impaired M9 OT- IP Assessment and Plan Start: 06/21/22 13:55 Freq: Status: Active Protocol: Document 06/21/22 13:56 [facility] (Rec: 06/21/22 14:33 [facility] [id number]) OT Summary Assessment and Plan Potential Rehabilitation Potential Good Analytic Complexity at Evaluation Moderate Summary OT Impairments Pain,Range of Motion,Balance, Functional Mobility,Self- Feeding,Grooming,Dressing, Toileting,Bathing,Toilet Transfers,Shower Transfers, Activity Tolerance Progress Towards Goals Slow Progress due to Medical Issues,Slow Progress due to Activity Tolerance Assessment Summary Pt MOD complexity and main barriers are steps, hypotensive, decreased balance and needing assist for all ADl and mobility needs. Pt is very unsteady on her feet and feels that she can not stand upright. Noted pt having lack of dorsi-flexion which may be from tightness and weakness of her muscles. Pt at this time would greatly benefit from skilled rehab prior to going home as pt is a very high fall risk at this time. Goals Self-Feeding Goal Independent Grooming Goal Independent Dressing Goal Minimal Assistance Toileting Goal Standby Assistance Bathing Goal Minimal Assistance Toilet Transfer Goal Independent Shower Transfer Goal Independent Days to Meet Goals 20 Frequency of Treatment Frequency Of Treatment Once a Day Treatment Plan OT Treatment Plan ADL Training,Functional Mobility,Patient/Family Education,Discharge Planning Discharge Recommendations OT Discharge Recommendations SNF Rehab Transportation Needs at Discharge Wheelchair/Cabulance
[2022-06-21 17:00] VITALS: BP 130/60; PULSE 86; RESP 17; TEMP 36.6; O2SAT 97
[2022-06-21 20:25] VITALS: BP 124/58; PULSE 106; RESP 18; TEMP 36.9; O2SAT 98
[2022-06-21] MEDS: OXYCODONE IR 5 MG TABLET PO (20:26)
[2022-06-22 00:15] VITALS: BP 127/62; PULSE 102; RESP 16; O2SAT 97
[2022-06-22 04:14] VITALS: BP 126/66; PULSE 103; RESP 16; TEMP 36.3; O2SAT 97
[2022-06-22] MEDS: PANTOPRAZOLE DR 20 MG TABLET PO (05:07)
[2022-06-22] MEDS: DOCUSATE 100 MG CAPSULE PO (09:36)
[2022-06-22] MEDS: ASPIRIN EC 81 MG TABLET PO (09:36)
[2022-06-22 10:00] VITALS: BP 130/59; PULSE 108; RESP 22; TEMP 37.1; O2SAT 98
[2022-06-22] MEDS: HYDROCODONE/ACET 5/325 TABLET 1 TAB PO (11:35)
[2022-06-22 11:48] VITALS: BP 137/59; BP 140/64; BP 158/73; PULSE 105; PULSE 108; PULSE 122
--- NOTE | 2022-06-22 12:23 | CM.DPNOTE ---
Discharge Planning Note: Patient has discharge to home orders. PT to see prior to dc. She lives with adult son who will transport. F2F completed but needs Ortho MD signature. [facility] referral ([facility] program) referral made, can likely accept without PCP. Notified them, left Aleisha a voicemail and will fax Discharge Summary and F2F when available. Plan: Discharge home to care of son. Barby Peralta RN/DCP
[2022-06-22 12:47] VITALS: BP 137/59; BP 140/64; BP 158/73; PULSE 105; PULSE 108; PULSE 122
--- NOTE | 2022-06-22 13:22 | PT.IPTN ---
Current Diagnoses Other displaced fracture of upper end of right humerus, initial encounter for closed fracture (06/20/22) Presence of unspecified artificial shoulder joint (06/20/22) Surgery Performed Operation Date: 06/20/22 13:45 Actual Procedures p Reverse Total Shoulder Arthroplasty for fracture with biceps tenodesis(Right) - Juan Pinto MD Physical Therapy Treatment Note M2 PT-IP Current Condition Start: 06/21/22 08:15 Freq: NEEDED Status: Active Protocol: Document 06/22/22 12:47 LRN (Rec: 06/22/22 13:21 LRN [id number]) Physical Therapy Current Condition Current Condition Evaluation Date 06/22/22 Treatment Diagnosis ws/p total reverse shoulder right M3 PT-IP Subjective Start: 06/21/22 08:15 Freq: NEEDED Status: Active Protocol: Document 06/22/22 12:47 LRN (Rec: 06/22/22 13:21 LRN [id number]) Subjective Physical Therapy Visit Type Type Treatment Note Visit Start Time 12:10 Visit Stop Time 12:45 Total Visit Minutes 35 Physical Therapy Visit Comments Patient Comments Pt ready for discharge, waiting for physical therapy. Nursing reports pt has been up by herself to turn lights on. Pt states she feels much better than yesterday and thinks the low blood pressure was due to medications from surgery. M4 PT-IP Mobility and Gait Start: 06/21/22 08:15 Freq: NEEDED Status: Active Protocol: Document 06/22/22 12:47 LRN (Rec: 06/22/22 13:21 LRN [id number]) PT-Bed Mobility Assessment Supine to Sit Supine to Sit Independent PT-Transfer Assessment Sit to and From Stand Sit to and from Stand Independent Equipment Transfer Assistive Device Gait Belt,Straight Cane Orthotic/Prosthetic Devices or Brace: Yes Transfers Transfer Destination Chair Transfer Ability Level of Assist Independent Comments Mobility Comments Pt transferred chair <> wheelchair with use of L arm chair support slowly but safely. Gait Assessment Gait Gait Assistance Required: Independent,Standby Assistance Distance (Feet) 125 Able to Maintain Weight Bearing Status Yes During Gait Assistive Devices Assistive Device Gait Belt,Straight Cane Orthotic/Prosthetic Devices or Brace: Yes Gait Deviations General Gait Pattern Decreased Stride Length,Flexed Trunk,Narrow Based Gait Factors Limiting Gait Function Factors Limiting Gait Function Decreased Activity Tolerance Comments Gait Comments Pt ambulated with a steady but slow gait and became reported short of breath x 2 while walking, requiring 2 standing rests stops. Pt did not demonstrate increased sway while walking. Stair Climbing Assessment Evaluation Level of Assist On Stairs Independent Devices Stair Climbing Assistive Devices None Technique/Endurance Stair Climbing Direction Ascend and Descend Stair Climbing Technique Step Over Step Number of Steps Climbed 3 Stair Climbing Set # Repetitions (reps) 1 Comments Stair Climbing Comments Pt ambulated stairs with use of railing on non-injured side (left). No difficulty or instability noted with use of railing. PT-Balance Assessment Sitting Balance and Reactions Static Sitting Balance Ability Normal Dynamic Sitting Balance Ability Good Standing Balance and Reactions Static Standing Balance Ability Good Dynamic Standing Balance Ability Good Device Used cane M5 PT-IP Objective Assessments Start: 06/21/22 08:15 Freq: NEEDED Status: Active Protocol: Document 06/22/22 12:47 LRN (Rec: 06/22/22 13:21 LRN [id number]) Orientation Orientation/Cognition Level of Alertness Alert Orientation Name Language Function Ability No Deficits Noted Other Assessments Other Other Assessments Immediately prior to PT therapy, it was requested that nursing do an orthostatic blood pressure checks. BP & HR report is as follows: Semi-reclined: BP 158/77, HR 105 Sitting: BP 137/59; HR 108 Standing: BP 170/64, HR 122 M6 PT-IP Treatment Start: 06/21/22 08:15 Freq: NEEDED Status: Active Protocol: Document 06/22/22 12:47 LRN (Rec: 06/22/22 13:21 LRN [id number]) Physical Therapy Treatment Education Education Provided Precautions,Post-Op Packet Other Treatments Other Treatment Performed Reviewed home ex's issued in post-op packet. Discussed exercises for the elbow, wrist , hand to be done with arm by the side. Pt instructed to keep sling on except for ex's, especially at night to prevent ER of arm. Discussed other sling/brace that the pt was told to wear. Being unfamiliar with what appeared to be an abductor brace with 2 metal stays, pt and son was instructed to contact surgeon office or ask the PA who might be seeing her today, to assist with wearing of the brace. M7 PT-IP Assessment and Plan Start: 06/21/22 08:15 Freq: NEEDED Status: Active Protocol: Document 06/22/22 12:47 LRN (Rec: 06/22/22 13:21 LRN [id number]) PT Summary Assessment and Plan Potential Rehabilitation Potential Good Status of Condition at Evaluation Evolving Summary Impairments ROM,Activity Tolerance Assessment Summary Pt is much improved in tolerance to activity. Per requested BP/HR postional checks immediately prior to PT , the pt demonstrated elevated BP to start, and with positional changes only a drop in blood pressure within reason from semi-reclined to sit. Good blood pressure response was noted on standing . The pt showed no symptoms of dizziness with transfers and tolerated activity very well. She was able to ambulate 100+ feet with single point cane independently and was only limited by her feeling of shortness of breath (not obvious visually). The pt was safe and independent with transfer and with stair ambulation with use of railing . The pt appears safe to go home with assist of son when present. There was concern that they did not know how to place the second brace on the R arm, but she preferred the soft sling that she had been previously issued. It was noted that her current sling lacked the strap going around the waist and pt and son were instructed to use it once getting home to limit ER of the shoulder. Pt will need further guidance from issuing facility or surgeon office if the brace, that appears to be an abductor brace, is a requirement for the pt to wear . Goals Bed Mobility Goal Independent Transfer Goal Independent Gait Goal Independent,Standby Assistance ,Minimal Assistance,Garry Walker Gait Distance 100+ ft Other Goals Pt educated in post-op movement precautions. Frequency of Treatment Frequency Of Treatment Discharge Precautions Shoulder Precautions Sling Other Precautions Elbow ROM, no ER past neutral for 6 weeks, okay to come off for shower Weight Bearing Status Weight Bearing Status Non-Weight Bearing Allowed Weight Bearing Amount (enter % NWB RUE or #) (%) Recommendations To Nursing Amount of Assist Needed Independent Discharge Recommendations PT Discharge Recommendations Home Other Discharge Recommendations Instructions for use of sling/ brace by surgeon office. Transportation Needs at Discharge Private Vehicle
== END 2022-06-22 14:12 | disposition home or self-care (01) | DRG 483 ==
LOC: AC 12:13 → ICU 16:54
PROVIDERS: Anesthesiology; Admitting Provider Orthopaedic Surgery; Referring Provider Orthopaedic Surgery; Visit Provider Orthopaedic Surgery
PROC: 0RRJ0J6 Replacement of Right Shoulder Joint with Synthetic Substitute, Humeral Surface, Open Approach (ICD-10-PCS; CPT 23472; principal; 2022-06-20 13:45)
DX: S42.201A Unspecified fracture of upper end of right humerus, initial encounter for closed fracture (principal); M19.011 Primary osteoarthritis, right shoulder; K21.9 Gastro-esophageal reflux disease without esophagitis; W19.XXXA Unspecified fall, initial encounter; Z20.822 Contact with and (suspected) exposure to COVID-19
CPT/HCPCS: 36415; 64450; 73020; 76000; 85014; 85018; 85027; 86850; 86900; 86901; 87635; 87797; 97161; 97166; 97530; C1776; C9803; C1713; J0171; J0690; J1100; J1170; J2250; J2405; J2704; J3010

== ENCOUNTER 2024-01-12 11:40 | Emergency (ER) | payer MEDICARE, SELFPAY ==
[2022-06-20 21:09] VITALS: BMI 22.2
[2024-01-12] VITALS (9 sets, daily range): BP systolic 149–184; BP diastolic 75–114; PULSE 93–121; RESP 12–22; TEMP 36.5; O2SAT 97–99; BMI 23.3
--- NOTE | 2024-01-12 12:02 | EKG_ITS ---
[facility] [id number] [place] [address] Test Date: 2024-01-12 Pat Name: Shiela Horowitz Department: Room: Gender: Female [employer] Machine Operator: ASHLEY : 1945 Requested By: Order Number: [id number] Reading MD: Mendoza Hong Measurements Intervals [place] Rate: 113 P: 60 ND: 150 QRS: 34 QRSD: 74 T: -13 QT: 334 QTc: 458 Interpretive Statements Sinus tachycardia Nonspecific ST and T wave abnormality Electronically Signed On 01-12-2024 15:28:45 PDT by Mendoza Hong
--- NOTE | 2024-01-12 12:02 | DI.RAD.S_ITS ---
PROCEDURE: XR CHEST 1V INDICATIONS: chest pain TECHNIQUE: One view of the chest was acquired. COMPARISON: [facility], CT, CT CHEST W CON, 01/12/2024, 12:58. FINDINGS: Surgical changes and devices: Right shoulder arthroplasty. Lungs and pleura: Costophrenic angle blunting on the left. No consolidations. Mediastinum: Mediastinal contours appear normal. Heart size is normal. Bones and chest wall: No suspicious bony lesions. Overlying soft tissues appear unremarkable. IMPRESSION: Left costophrenic angle blunting suggestive scarring versus minimal effusion. Dictated by: Thalia Merchant M.D. on 01/12/2024 at 13:29 Approved by: Thalia Merchant M.D. on 01/12/2024 at 13:30
[2024-01-12 12:14] LABS: Add Manual Diff / Slide Review NO; Basophils Absolute Auto 0 /uL (0-100); Basophils Percent Auto 0.5 % (0-2); Eosinophils Absolute Auto 0 /uL (0-450); Eosinophils Percent Auto 0.3 % (2-4); Hematocrit 36.7 % (36-46); Hemoglobin 12.2 g/dL (12.0-16.0); Lymphocytes Absolute Auto 1500 /uL (1100-4500); Lymphocytes Percent Auto 18.8 % (25-40); Mean Corpuscular HGB Conc 33.2 % (30-36); Mean Corpuscular Hemoglobin 31.6 PG (26-34); Mean Corpuscular Volume 95.1 fL (80-100); Monocytes Absolute Auto 1300 /uL (0-900); Monocytes Percent Auto 16.3 % (3-14); Neutrophils Absolute Auto 5300 /uL (1500-7000); Neutrophils Percent Auto 64.1 % (50-75); Platelet Count 214 X10^3/uL (150-400); Red Blood Cell Count 3.85 X10^6/uL (4.0-5.2); Red Cell Distribution Width 13.7 % (11.6-14.8); White Blood Cell Count 8.2 X10^3/uL (4.5-11.0)
--- NOTE | 2024-01-12 12:15 | PC.NURSE ---
hand XR ordered. Pt refusing. reports its just bruised, i can move it fine and it doesnt hurt. aware.
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
[2024-01-12 12:21] LABS: INR 0.9 (0.9-1.3); Prothrombin Time 10.6 SECONDS (9.4-12.5)
[2024-01-12 12:24] LABS: PTT Partial Thromboplastin Tim 31 SECONDS (25.1-36.5)
[2024-01-12 12:25] LABS: Alanine Aminotransferase 41 IU/L (<35); Albumin 4.5 g/dL (3.5-5.0); Albumin Globulin Ratio 1.1 (1.0-2.8); Alkaline Phosphatase 85 U/L (38-126); Aspartate Aminotransferase 64 IU/L (14-36); BUN Creatinine Ratio 36.7 (6-22); Bilirubin Total 0.6 mg/dL (0.2-1.3); Blood Urea Nitrogen 22 mg/dL (7-17); Calcium 9.6 mg/dL (8.4-10.2); Carbon Dioxide 25 mmol/L (22-32); Chloride 99 mmol/L (98-107); Creatine Kinase 334 U/L (30-135); Estimated Glomerular Filt Rate > 60 mL/min (>60); Globulin 4.1 g/dL (1.7-4.1); Glucose 126 mg/dL (80-110); HEMOLYSIS 36 (0-50); Lipase 85 U/L (23-300); Magnesium 1.9 mg/dL (1.6-2.3); Potassium 3.7 mmol/L (3.4-5.1); Sodium 134 mmol/L (137-145); Total Protein 8.6 g/dL (6.3-8.2)
--- NOTE | 2024-01-12 12:35 | DI.CT.S_ITS ---
PROCEDURE: CT CHEST W CON INDICATIONS: left rib fractures, tachy, fall Friday TECHNIQUE: After the administration of intravenous contrast, 5 mm thick sections acquired from the pulmonary apices to the posterior costophrenic angles. 1 mm axial lung, 5 mm thick coronal and sagittal reformats and 7 mm axial MIP were acquired. For radiation dose reduction, the following was used: automated exposure control, adjustment of mA and/or kV according to patient size. COMPARISON: None. FINDINGS: Image quality: Diagnostic. Lower Neck: No enlarged lymph nodes. Thyroid: No thyroid nodules which require sonographic follow up, per consensus guidelines. Axillae: No enlarged lymph nodes. Chest Wall: Unremarkable. Bones: Multiple left-sided rib fractures. Anterior left 3rd rib fracture. Anterior lateral minimally displaced left 4th rib fracture. Displaced lateral left 5th rib fracture. Displaced lateral left 6th rib fracture. Displaced lateral left 7th rib fracture with overriding.. Lungs and Pleura: No pneumothorax or focal pulmonary infiltrate. Minimal bibasilar dependent change. Minimal left pleural fluid. Heart: Heart size is normal. No pericardial effusion. Thoracic Vessels: The aorta and pulmonary arteries demonstrate normal size. Mediastinum and Teresa: No enlarged lymph nodes. Esophagus: No wall thickening. No hiatal hernia. Upper Abdomen: Visualized upper abdomen solid organs and bowel loops appear normal. IMPRESSION: 1. There are 5 contiguous left rib fractures with no associated pneumothorax. There is a minimal left pleural effusion. Dictated by: Jh Ceron M.D. on 01/12/2024 at 14:10 Approved by: Jh Ceron M.D. on 01/12/2024 at 14:14
[2024-01-12 12:37] LABS: NT-proBNP (BNP-Adult 18+) 147 pg/mL (<450); Troponin I < 0.012 ng/mL (0.01-0.034)
== END 2024-01-12 14:48 | disposition home or self-care (01) ==
PROVIDERS: Emergency Provider Emergency Medicine
DX: S22.42XA Multiple fractures of ribs, left side, initial encounter for closed fracture (principal); R00.0 Tachycardia, unspecified; W18.30XA Fall on same level, unspecified, initial encounter
CPT/HCPCS: 36415; 71045; 71260; 73130; 80053; 82550; 83690; 83735; 83880; 84484; 85025; 85610; 85730; 93005; 99284; 99285; Q9967

== ENCOUNTER → 2024-05-05 11:59 | Outpatient (CLI) | payer MEDICARE, SELFPAY ==
[2022-06-20 21:09] VITALS: BMI 22.2
--- NOTE | 2024-05-05 12:01 | DI.RAD.S_ITS ---
PROCEDURE: XR CERVICAL SPINE 2V OR 3V INDICATIONS: chronic neck pain TECHNIQUE: 4 view(s) of the cervical spine were acquired. COMPARISON: None. FINDINGS: Bones: There is a significant kyphosis which limits the examination. The odontoid and cranial cervical spine portion of the spine is not well imaged. There is diffuse bony osteopenia. No acute fractures or subluxation is identified. There is moderate degenerative disc disease at the C6-7 level and to lesser extent C5-6 level. Soft tissues: No prevertebral soft tissue swelling. IMPRESSION: Limited study. Moderate cervical spondylosis involving the lower cervical spine. Dictated by: Sheyla Menjivar M.D. on 05/05/2024 at 14:55 Approved by: Sheyla Menjivar M.D. on 05/05/2024 at 15:01
--- NOTE | 2024-05-05 12:01 | DI.RAD.S_ITS ---
PROCEDURE: XR LUMBAR SPINE 2-3V INDICATIONS: chronic low back pain TECHNIQUE: 3 views of the lumbar spine were acquired. COMPARISON: None. FINDINGS: Bones: There is diffuse bony osteopenia. 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 There is a mild grade 1 anterolisthesis of the L4 on L5. There is advanced multilevel degenerative disc disease and facet arthropathy. Soft tissues: Overlying bowel gas pattern is normal. No suspicious soft tissue calcifications. IMPRESSION: Diffuse bony osteopenia with multilevel degenerative disc and degenerative facet arthropathy. Dictated by: Sheyla Menjivar M.D. on 05/05/2024 at 15:02 Approved by: Sheyla Menjivar M.D. on 05/05/2024 at 15:05
--- NOTE | 2024-05-05 12:01 | DI.RAD.S_ITS ---
PROCEDURE: XR KNEE LT 3V INDICATIONS: bilateral knee pain TECHNIQUE: 3 views of the knee were acquired. COMPARISON: None. FINDINGS: Bones: No fractures or dislocations. No suspicious bony lesions. There is diffuse bony osteopenia. There is tricompartmental osteoarthritis most severe involving the lateral compartment. Soft tissues: No joint effusion. No suspicious soft tissue calcifications. IMPRESSION: Moderately severe tricompartmental osteoarthritis involving especially lateral compartment of the left knee. Dictated by: Sheyla Menjivar M.D. on 05/05/2024 at 13:39 Approved by: Sheyla Menjivar M.D. on 05/05/2024 at 13:41
--- NOTE | 2024-05-05 12:01 | DI.RAD.S_ITS ---
PROCEDURE: XR KNEE RT 3V INDICATIONS: bilateral knee pain TECHNIQUE: 3 views of the knee were acquired. COMPARISON: None. FINDINGS: Bones: No fractures or dislocations. No suspicious bony lesions. Soft tissues: No joint effusion. No suspicious soft tissue calcifications. IMPRESSION: No acute bony abnormality or significant effusion. Dictated by: Sheyla Menjivar M.D. on 05/05/2024 at 12:42 Approved by: Sheyla Menjivar M.D. on 05/05/2024 at 12:42
[2024-05-05 12:55] LABS: Add Manual Diff / Slide Review NO; Basophils Absolute Auto 0 /uL (0-100); Basophils Percent Auto 0.3 % (0-2); Eosinophils Absolute Auto 0 /uL (0-450); Eosinophils Percent Auto 0.1 % (2-4); Hematocrit 36.3 % (36-46); Hemoglobin 11.7 g/dL (12.0-16.0); Lymphocytes Absolute Auto 1700 /uL (1100-4500); Lymphocytes Percent Auto 15.6 % (25-40); Mean Corpuscular HGB Conc 32.2 % (30-36); Mean Corpuscular Hemoglobin 29.3 PG (26-34); Mean Corpuscular Volume 90.9 fL (80-100); Monocytes Absolute Auto 1500 /uL (0-900); Monocytes Percent Auto 13.2 % (3-14); Neutrophils Absolute Auto 7800 /uL (1500-7000); Neutrophils Percent Auto 70.8 % (50-75); Platelet Count 233 X10^3/uL (150-400); Red Blood Cell Count 3.99 X10^6/uL (4.0-5.2); Red Cell Distribution Width 14.1 % (11.6-14.8)
[2024-05-05 13:11] LABS: Hemoglobin A1C% w Est Avg Glu 4.9 % (4.0-6.0)
[2024-05-05 13:22] LABS: Alanine Aminotransferase 31 IU/L (<35); Albumin 4.6 g/dL (3.5-5.0); Albumin Globulin Ratio 1.5 (1.0-2.8); Alkaline Phosphatase 119 U/L (38-126); Aspartate Aminotransferase 43 IU/L (14-36); BUN Creatinine Ratio 24.6 (6-22); Bilirubin Total 1.1 mg/dL (0.2-1.3); Blood Urea Nitrogen 15 mg/dL (7-17); Calcium 9.1 mg/dL (8.4-10.2); Carbon Dioxide 25 mmol/L (22-32); Chloride 100 mmol/L (98-107); Cholesterol 171 mg/dL (140-199); Estimated Glomerular Filt Rate > 60 mL/min (>60); Globulin 3.1 g/dL (1.7-4.1); Glucose 98 mg/dL (80-110); HDL Cholesterol 79 mg/dL (40-60); HEMOLYSIS < 15 (0-50); LDL Cholesterol Calculated 82 mg/dL (<100); Potassium 4.5 mmol/L (3.4-5.1); Sodium 136 mmol/L (137-145); Total Protein 7.7 g/dL (6.3-8.2); Triglycerides 49 mg/dL (35-150)
== END ==
PROVIDERS: PCP Family Medicine; Referring Provider Family Medicine; Visit Provider Family Medicine
DX: M47.812 Spondylosis without myelopathy or radiculopathy, cervical region (principal); M47.816 Spondylosis without myelopathy or radiculopathy, lumbar region; M51.360 Other intervertebral disc degeneration, lumbar region with discogenic back pain only; M54.2 Cervicalgia; M85.88 Other specified disorders of bone density and structure, other site; M17.12 Unilateral primary osteoarthritis, left knee; M25.562 Pain in left knee; M25.561 Pain in right knee; G89.29 Other chronic pain; K21.9 Gastro-esophageal reflux disease without esophagitis; R74.8 Abnormal levels of other serum enzymes; M81.0 Age-related osteoporosis without current pathological fracture; D72.821 Monocytosis (symptomatic)
CPT/HCPCS: 36415; 72040; 72100; 73562; 80053; 80061; 83036; 85025

== ENCOUNTER → 2024-08-06 10:42 | Outpatient (CLI) | payer MEDICARE, SELFPAY ==
[2022-06-20 21:09] VITALS: BMI 22.2
[2024-08-06 11:18] LABS: Add Manual Diff / Slide Review NO; Basophils Absolute Auto 0 /uL (0-100); Basophils Percent Auto 0.7 % (0-2); Eosinophils Absolute Auto 100 /uL (0-450); Eosinophils Percent Auto 0.8 % (2-4); Hematocrit 37.4 % (36-46); Hemoglobin 12.6 g/dL (12.0-16.0); Lymphocytes Absolute Auto 1500 /uL (1100-4500); Mean Corpuscular HGB Conc 33.7 % (30-36); Mean Corpuscular Hemoglobin 30.8 PG (26-34); Mean Corpuscular Volume 91.3 fL (80-100); Monocytes Absolute Auto 800 /uL (0-900); Monocytes Percent Auto 12.1 % (3-14); Neutrophils Absolute Auto 4600 /uL (1500-7000); Neutrophils Percent Auto 65.4 % (50-75); Platelet Count 243 X10^3/uL (150-400); Red Cell Distribution Width 14.3 % (11.6-14.8)
[2024-08-06 11:31] LABS: Alanine Aminotransferase 27 IU/L (<35); Albumin 4.6 g/dL (3.5-5.0); Albumin Globulin Ratio 1.2 (1.0-2.8); Alkaline Phosphatase 160 U/L (38-126); Aspartate Aminotransferase 45 IU/L (14-36); BUN Creatinine Ratio 36.2 (6-22); Bilirubin Total 0.7 mg/dL (0.2-1.3); Blood Urea Nitrogen 21 mg/dL (7-17); Calcium 8.9 mg/dL (8.4-10.2); Carbon Dioxide 25 mmol/L (22-32); Chloride 106 mmol/L (98-107); Estimated Glomerular Filt Rate > 60 mL/min (>60); Globulin 3.9 g/dL (1.7-4.1); Glucose 93 mg/dL (70-99); HEMOLYSIS < 15 (0-50); Potassium 4.7 mmol/L (3.4-5.1); Sodium 140 mmol/L (137-145); Total Protein 8.5 g/dL (6.3-8.2)
[2024-08-06 11:34] LABS: HEMOLYSIS < 15 (0-50); Iron 67 ug/dL (37-170)
[2024-08-06 11:46] LABS: Percent Iron Saturation 21 % (15-50); Total Iron Binding Capacity 312 ug/dL (265-497); Transferrin 286 mg/dL (206-381)
[2024-08-06 12:06] LABS: Ferritin 33 ng/mL (11-264)
[2024-08-06 12:24] LABS: Vitamin B12 837 pg/mL (239-931)
== END ==
PROVIDERS: PCP Family Medicine; Referring Provider Family Medicine; Visit Provider Family Medicine
DX: R74.8 Abnormal levels of other serum enzymes (principal); D72.821 Monocytosis (symptomatic); M54.50 Low back pain, unspecified; D64.9 Anemia, unspecified; G89.29 Other chronic pain
CPT/HCPCS: 36415; 80053; 82607; 82728; 83540; 83550; 85025

== ENCOUNTER → 2024-11-26 11:48 | Outpatient (CLI) | payer MEDICARE, SELFPAY ==
[2022-06-20 21:09] VITALS: BMI 22.2
--- NOTE | 2024-11-26 11:50 | DI.RAD.S_ITS ---
PROCEDURE: XR SHOULDER RT MIN 2V INDICATIONS: right shoulder pain TECHNIQUE: 3 views of the shoulder were acquired. COMPARISON: None. FINDINGS: Bones: Right shoulder arthroplasty redemonstrated with prosthetic components in expected unchanged positions. No periprosthetic fractures or evidence of loosening/infection. Healed fracture deformity of the humeral head. Soft tissues: No suspicious soft tissue calcifications. IMPRESSION: Stable appearance of right shoulder arthroplasty without radiographic evidence for interval hardware complication. Dictated by: Tanvir PEREZ Interpreted: Kristopher Hickman MD on 11/26/2024 at 12:24 Transcribed by: MADDIE on 12/01/2024 at 13:43 Approved by: [place] James M.D. on 12/01/2024 at 16:40
== END ==
PROVIDERS: PCP Family Medicine; Referring Provider Family Medicine; Visit Provider Family Medicine
DX: M25.511 Pain in right shoulder (principal); Z98.890 Other specified postprocedural states; Z96.611 Presence of right artificial shoulder joint
CPT/HCPCS: 73030